=== PATIENT | female | born 1995 | race Caucasian/White ===

== ENCOUNTER 2016-07-01 19:28 | Observation (INO) | payer OTHER ==
[2016-07-01] MEDS ORDERED: ONDANSETRON 4 MG/2 ML VIAL ONE (20:07)
[2016-07-01] MEDS ORDERED: ONDANSETRON 4 MG/2 ML VIAL IVP ONE ×2 (20:19→22:09)
[2016-07-01] MEDS ORDERED: NS 1,000 ML IV ONE ×2 (20:20→22:09)
--- NOTE | 2016-07-01 20:32 | EDPHY ---
H & P Stated Complaint: epigastric pain HPI/ROS: HPI CHIEF COMPLAINT: Abdominal pain HISTORY OF PRESENT ILLNESS: This patient very pleasant 20-year-old female, denies any significant medical history, presents to the emergency room by private vehicle with nausea, 1 episode of nonbilious nonbloody vomiting, and abdominal pain. The patient tells me that around 5:00 p.m. this evening she felt very nauseous she went to work her nausea got more intense and she developed mid abdominal abdominal pain. She tells me the abdominal pain is located in her mid abdomen at times periumbilical however she does tell me she is on her. At this time. She does feel better since arriving in the emergency room and receiving IV Zofran 4 mg and IV fluids. She denies any urinary complaints denies back pain, chest pain, shortness of breath or fever. currently she tells me the pain is 4/10. Main complaint is mid abdominal pain. She describes a sharp stabbing pain. she tells me it comes and goes. Past Medical History:Denies any significant medical history Past Surgical History: Denies any significant surgical history Social History: denies daily use of drugs, does endorse occasional alcohol, occasional tobacco Family History: noncontributory ROS REVIEW OF SYSTEMS: A comprehensive 10 point review of systems is otherwise negative aside from elements mentioned in the history of present illness. Exam Constitutional triage nursing summary reviewed, vital signs reviewed, awake/ alert. (noted to be Tachy) Eyes normal conjunctivae and sclera, EOMI, PERRLA. HENT normal inspection, atraumatic, moist mucus membranes, no epistaxis, neck supple/ no meningismus, no raccoon eyes. Respiratory clear to auscultation bilaterally, normal breath sounds, no respiratory distress, no wheezing. Cardiovascular tachycardic, regular rhythm, no murmur, no edema, distal pulses normal. Gastrointestinal soft, mild tenderness palpation in the mid abdomen , no rebound, no guarding, normal bowel sounds, no distension, no pulsatile mass. Genitourinary no CVA tenderness. Musculoskeletal no midline vertebral tenderness, full range of motion, no calf swelling, no tenderness of extremities, no meningismus, good pulses, neurovascularly intact. Skin pink, warm, & dry, no rash, skin atraumatic. Neurologic awake, alert and oriented x 3, AAOx3, moves all 4 extremities equally, motor intact, sensory intact, CN II-XII intact, normal cerebellar, normal vision, normal speech. Psychiatric normal mood/affect. Heme/Lymph/Immune no lymphadenopathy. Differential diagnosis includes but is not limited to and in no particular order : acute appendicitis, gastritis, esophagitis, GERD, peptic ulcer disease, gallbladder disease Bowel obstruction, appendicitis, diverticulitis, colitis, enteritis, perforated viscus, gastritis, GERD, esophagitis, urinary tract infection, pyelonephritis, kidney stones Medical Decision Making: The patient had an IV established, patient placed on a monitor, she received IV fluids 1 L normal saline for hydration, 4 mg IV Zofran for nausea. We will obtain blood work including abdominal labs LFTs and lipase. Check a test, patient will need a CT scan abdomen pelvis with IV contrast rule out acute appendicitis. And will re-evaluate. Gordon VILLANUEVA as well on this case. Re-evaluation: EKG interpretation by me on record in [employer] system. Impression time of EKG 2050 this is sinus rhythm rate of 96 no acute ischemic changes. Normal EKG. No prolonged intervals, no ST elevation ST depression T-wave abnormalities. 0911: repeat vitals at this time afebrile, heart rate has improved from the 120 to 96 at rest. This time she has no complaints. CT scan of the abdomen pelvis with IV contrast for abdominal pain. The results of the study are this shows diffuse small bowel and large bowel fluid-filled contents consistent with most likely enteritis, also there may be duodenitis with gastric outlet obstruction The study was read by Dr. HUITRON. I viewed the images myself on the PACS system. 2199: I did update the patient and parents at bedside she still has ongoing abdominal pain and nausea bloating. I did review the CT scan with surgery they do recommend NG to low intermittent suction and admission. I did update the patient she will need to be admitted for observation NG suction due to possible gastric outlet obstruction from duodenitis/enteritis. It is noted the bowel wall do not appear inflamed or significantly dilated. I will consult the hospitalist service for admission. 2209: Spoke with Dr. Duffy the hospitalist service he agrees to admit this patient patient be admitted for enteritis, duodenitis, gastric outlet obstruction. I have ordered NG tube. Patient has been updated as well as family. She is comfortable this plan. She understands unfortunately the hospital's full this time will be observed in the emergency room overnight she is fine with this plan so his parents. Source: Patient - Personal History LMP (Females 10-55): Now Current Tetanus/Diphtheria Vaccine: Yes Current Tetanus Diphtheria and Acellular Pertussis (TDAP): Yes - Medical/Surgical History Hx Asthma: No Hx Chronic Respiratory Disease: No Hx Diabetes: No Hx Cardiac Disease: No Hx Renal Disease: No Hx Cirrhosis: No Hx Alcoholism: No Hx HIV/AIDS: No Hx Splenectomy or Spleen Trauma: No - Social History Smoking Status: Current some day smoker Constitutional: Initial Vital Signs Temperature (C) 36.6 C 07/01/16 19:54 Heart Rate 125 H 07/01/16 19:54 Respiratory Rate 18 07/01/16 19:54 Blood Pressure 155/93 H 07/01/16 19:54 O2 Sat (%) 96 07/01/16 19:54 O2 Delivery Mode Room Air Allergies/Adverse Reactions: No Known Allergies Allergy (Unverified 07/01/16 19:54) Home Medications: Medication Instructions Recorded Norgestimate-Ethinyl Estradiol 1 each PO DAILY 07/02/16 [Trinessa Lo Tablet] Ondansetron Odt [Zofran Odt 4 mg 4 mg PO Q8H PRN #20 tab 07/02/16 (*)] Medical Decision Making - Data Points Laboratory Results: Laboratory Results 07/01/16 20:10 07/01/16 20:10 Medications Given: Discontinued Medications Hydromorphone HCl (Dilaudid) 0.2 - 0.4 mg IVP Q4HRS PRN PRN Reason: Pain, Severe Unable to Take PO Stop: 07/11/16 23:51 Last Admin: 07/02/16 00:50 Dose: 0.2 mg Sodium Chloride (Ns) 1,000 mls @ 0 mls/hr IV ONCE ONE PRN Reason: Wide Open Stop: 07/01/16 20:21 Last Admin: 07/01/16 20:20 Dose: 1,000 mls Sodium Chloride (Ns) 1,000 mls @ 0 mls/hr IV ONCE ONE PRN Reason: Wide Open Stop: 07/01/16 22:10 Last Admin: 07/01/16 23:03 Dose: 1,000 mls Sodium Chloride (Ns) 1,000 mls @ 100 mls/hr IV CONT ANA ROSA Stop: 12/28/16 23:44 Last Admin: 07/02/16 01:00 Dose: 1,000 mls Morphine Sulfate (Morphine) 2 mg IVP EDNOW ONE Stop: 07/01/16 23:05 Last Admin: 07/01/16 23:12 Dose: 2 mg Ondansetron HCl (Zofran) 4 mg IVP EDNOW ONE Stop: 07/01/16 20:20 Last Admin: 07/01/16 20:20 Dose: 4 mg Ondansetron HCl (Zofran) 4 mg IVP EDNOW ONE Stop: 07/01/16 22:10 Last Admin: 07/01/16 23:02 Dose: 4 mg Promethazine HCl (Phenergan) 12.5 mg IVP Q6HRS PRN PRN Reason: Nausea/Vomiting, Can't Take PO Stop: 12/28/16 23:51 Last Admin: 07/02/16 00:50 Dose: 6.25 mg Departure - Departure Disposition: [facility] Acute Clinical Impression: Gastric outlet obstruction Abdominal pain Qualifiers: Abdominal location: generalized Qualified Code(s): R10.84 - Generalized abdominal pain Condition: Good
[2016-07-01 20:47] LABS: % IMMATURE GRANULYOCYTES 0.6 % (0.0-1.1); ABSOLUTE IMMATURE GRANULOCYTES 0.12 10^3/uL (0.00-0.10); ADD DIFF? NO; ADD MORPH? NO; ADD SCAN? NO; ATYPICAL LYMPHOCYTE FLAG 0 (0-99); FRAGMENT RBC FLAG 0 (0-99); HEMATOCRIT 51.7 % (38.0-47.0); HEMOGLOBIN 17.7 g/dL (12.6-16.3); LEFT SHIFT FLG 0 (0-99); LIPEMIA HEMOLYSIS FLAG 90 (0-99); MEAN CELL HEMOGLOBIN 30.1 pg (27.9-34.1); MEAN CELL HEMOGLOBIN CONCENTR. 34.2 g/dL (32.4-36.7); MEAN CELL VOLUME 87.9 fL (81.5-99.8); MEAN PLATELET VOLUME 9.2 fL (8.7-11.7); PLATELET CLUMPS FLAG 0 (0-99); PLATELET COUNT 495 10^3/uL (150-400); RED BLOOD CELL COUNT 5.88 10^6/uL (4.18-5.33); RED CELL DISTRIBUTION WIDTH 11.9 % (11.5-15.2)
--- NOTE | 2016-07-01 20:52 | CPEKG ---
Heart Rate: 96 RR Interval: 625 P-R Interval: 136 QRSD Interval: 102 QT Interval: 360 QTC Interval: 455 P [place]: 69 QRS [place]: 72 T Wave [place]: 17 EKG Severity - NORMAL ECG - EKG Impression: SINUS RHYTHM Electronically Signed By: Cole Graham 02-Jul-2016 22:48:59
[2016-07-01 20:53] LABS: ALBUMIN 4.9 g/dL (3.5-5.0)
[2016-07-01 20:54] LABS: COLOR YELLOW; LEUKOCYTE ESTERASE,URINE NEGATIVE (NEGATIVE); NITRITE,URINE NEGATIVE (NEGATIVE)
[2016-07-01 20:55] LABS: ALANINE AMINOTRANSFERASE 23 IU/L (9-52); ALKALINE PHOSPHATASE 69 IU/L (38-126); ANION GAP 15 mEq/L (8-16); ASPARTATE AMINOTRANSFERASE 31 IU/L (14-46); BILIRUBIN,TOTAL 0.5 mg/dL (0.1-1.4); BILIRUBIN-CONJUGATED 0.5 mg/dL (0.0-0.5); CALCIUM 10.7 mg/dL (8.5-10.4); CARBON DIOXIDE 24 mEq/l (22-31); CHLORIDE 102 mEq/L (97-110); CREATININE 0.7 mg/dL (0.6-1.0); GLOMERULAR FILTRATION RATE > 60; GLUCOSE 90 mg/dL (70-100); POTASSIUM 4.1 mEq/L (3.5-5.2); SODIUM 141 mEq/L (134-144); TOTAL PROTEIN 8.3 g/dL (6.3-8.2)
[2016-07-01] MEDS ORDERED: IOPAMIDOL (ISOVUE-300) 100 ML BTL IV ONE (21:10)
[2016-07-01 21:12] LABS: MUCUS 4+ /lpf (NONE-1+)
--- NOTE | 2016-07-01 22:08 | CT ---
CT Scan of the Abdomen and Pelvis (With Contrast) Clinical Indications: Just had a [employer] drink, now with extensive epigastric pain. Technique: Dilute contrast was given orally prior to the scan. During the machine power injection o f 80 mL Isovue-300 intravenously, multidetector helical CT imaging was performed from the diaphragm t o the pubic symphysis. Coronal and parasagittal reformatted images are reviewed on the workstation. Dose reduction techniques were utilized. Findings: The stomach is very distended. While the 3rd and 4th portion of the duodenum demonstrate fluid content, the 1st and 2nd portions of the duodenum are relatively decompressed, with what looks to be circumferential wall thickening. For example, at the 1st portion of the duodenum, the medial a nd the lateral mares measure up to 8 mm each. Also, aside from the jejunum, the entirety of the ilea l loops and all of the colonic loops, all the way down to the rectum, are fluid filled. This is not associated with wall thickening, inflammation, distention, or perforation. Vessels enhance normally. The liver, pancreas, spleen, adrenal glands, and kidneys also enhance norm ally. No hydronephrosis. The lung bases are clear. The soft tissues and bones are normal for the patient's age. Impression: 1. Query enteritis of the small bowel. 2. Could the patient have enteritis that is causing some degree of duodenitis, which in turn is caus ing epigastric outlet obstruction? Findings are discussed with Dr. Cole Lawson.
[2016-07-01] MEDS ORDERED: LIDOCAINE 2% JELLY 20 ML (UROJECT) ONE (22:24)
[2016-07-01] MEDS ORDERED: NS 1,000 ML IV SCH (23:45)
[2016-07-01] MEDS ORDERED: ONDANSETRON DISINTEGRATING 4 MG TAB PO PRN (23:52)
[2016-07-01] MEDS ORDERED: PROMETHAZINE HCL 25 MG/ML INJ IVP PRN (23:52)
[2016-07-01] MEDS ORDERED: ACETAMINOPHEN 325 MG TAB PO PRN (23:52)
[2016-07-01] MEDS ORDERED: HYDROmorphONE/DILAUDID 1 MG/ML SYR IVP PRN (23:52)
[2016-07-01] MEDS ORDERED: ONDANSETRON 4 MG/2 ML VIAL IVP PRN (23:52)
--- NOTE | 2016-07-02 00:57 | GHP ---
[f rep st] HISTORY AND PHYSICAL DATE OF ADMISSION: 07/01/2016 The patient is a 20-year-old female with no past medical history, who presents with abrupt onset epig astric/left upper quadrant pain. It was associated with some nausea and vomiting. It happened when she was at [employer]. She threw up her [employer] drink. She takes occasional ibuprofen but is not a typical ibuprofen user. She is a light smoker. Does not drink a lot of alcohol. No significant fa kalyan history. She has had no subjective fevers and chills. No nausea or vomiting. Her bowel habits she describes as normal, having a bowel movement between every other day and a couple of times a day. She has no t enesmus or vomiting or chronic abdominal pain to suggest a history of inflammatory bowel disease and this history does not run in her family. She has had no drenching night sweats or unexplained weight loss recently. REVIEW OF SYSTEMS: Complete 10-point review of systems conducted and negative except as noted in the HPI. PAST MEDICAL HISTORY: None. PAST SURGICAL HISTORY: She has never had abdominal surgery. SOCIAL HISTORY: She is a student at from [employer]. Her mother is at the bedside. Occasional tobacco, occasional alcohol, no drugs. FAMILY HISTORY: Reviewed and unremarkable. ALLERGIES: No known drug allergies. HOME MEDICATIONS: Oral contraceptives. PHYSICAL EXAMINATION: VITAL SIGNS: Presenting vitals: Temp 36.6, blood pressure 155/93, pulse 125, breathing 18 times a minute, 96% on room air. GENERAL: No acute distress. HEENT: Sclerae anicter ic. Oropharynx clear. Mucous membranes moist. NECK: Supple without lymphadenopathy or JVD. LUNGS : Clear to auscultation bilaterally. HEART: S1, S2. ABDOMEN: Soft, nontender, nondistended. LOW ER EXTREMITIES: Without edema. Calves are nontender. SKIN: Without rash. NEUROLOGIC: Grossly no nfocal. LABORATORY DATA: White count 19.1 with a left shift. Hematocrit 51.7. Platelets are 495,000, sodiu m 141, potassium 4.1, chloride 102, bicarb 24, BUN 13, creatinine 0.7. LFTs normal. Lipase normal. Beta hCG is negative. UA is unremarkable. Abdominal CT shows enteritis of the small bowel with a distended stomach and 3rd and 4th portion of t he duodenum with food content. First and 2nd portions are relatively decompressed. There is no wall thickening of the jejunum, ileum, or colon. There does not appear to be adenopathy. The mares 8 mm thick of the proximal duodenum. EKG, interpreted by me, shows sinus at 96 with normal axis and inte rvals and no ST or T-wave changes. I have discussed the case with Dr. Cole Graham. ASSESSMENT/PLAN: 1. A 20-year-old female who presents with sudden-onset epigastric pain and vomiting and gastric outl et obstruction. I suspect this is secondary to a viral infection with obliteration of the duodenal l umen although this is somewhat of an unusual and dramatic presentation. She has an NG tube and we wi ll provide her with IV antiemetics as well as IV pain medicines. We will allow her to have a clear l iquid diet. Differential includes extrinsic component which is not demonstrated on the CT as well as inflammatory bowel disease. I think that for the time being we are going to hold off on GI consult and endoscopy and follow her clinical progress. Certainly, if there is no improvement over 24-36 karmen rs, I think it would be reasonable to perform upper endoscopy. 2. Polycythemia. I think the patient is clinically dry. I will repeat a CBC in the morning. 3. Leukocytosis, likely secondary to viral infection. 4. Tobacco use. Counseled on cessation. 5. Prophylaxis, low use. 6. Disposition: Observation status. /[id number]/MODL
[2016-07-02 06:25] LABS: ANION GAP 12 mEq/L (8-16); CALCIUM 8.1 mg/dL (8.5-10.4); CARBON DIOXIDE 21 mEq/l (22-31); CHLORIDE 109 mEq/L (97-110); CREATININE 0.7 mg/dL (0.6-1.0); GLOMERULAR FILTRATION RATE > 60; GLUCOSE 110 mg/dL (70-100); POTASSIUM 4.3 mEq/L (3.5-5.2); SODIUM 142 mEq/L (134-144)
[2016-07-02 06:57] LABS: % IMMATURE GRANULYOCYTES 0.2 % (0.0-1.1); ABSOLUTE IMMATURE GRANULOCYTES 0.03 10^3/uL (0.00-0.10); ADD DIFF? NO; ADD MORPH? NO; ADD SCAN? NO; ATYPICAL LYMPHOCYTE FLAG 0 (0-99); FRAGMENT RBC FLAG 10 (0-99); HEMATOCRIT 42.3 % (38.0-47.0); HEMOGLOBIN 14.4 g/dL (12.6-16.3); LEFT SHIFT FLG 10 (0-99); LIPEMIA HEMOLYSIS FLAG 90 (0-99); MEAN CELL HEMOGLOBIN 30.8 pg (27.9-34.1); MEAN CELL VOLUME 90.6 fL (81.5-99.8); MEAN PLATELET VOLUME 9.3 fL (8.7-11.7); PLATELET CLUMPS FLAG 0 (0-99); PLATELET COUNT 312 10^3/uL (150-400); RED BLOOD CELL COUNT 4.67 10^6/uL (4.18-5.33); RED CELL DISTRIBUTION WIDTH 11.9 % (11.5-15.2)
[2016-07-02 07:54] VITALS: TEMP 98.2
--- NOTE | 2016-07-02 08:39 | HOSPPROG ---
Hospitalist Progress Note Assessment/Plan: 20 yo F w GOO, n, vom GOO: working dx is gastroenteritis w obliteration of lumen 1. clamp NGT 2. film at 11 (abd) 3. rec outpt egd see dc summary Subjective: drinking clear liquids but NGT to suction. symptomatically improved Objective: Vital Signs Temp Pulse Resp BP Pulse Ox 36.8 C 105 H 14 108/60 95 07/02/16 07:53 07/02/16 07:53 07/02/16 07:53 07/02/16 07:53 07/02/16 07:53 Laboratory Results 07/02/16 05:15 07/02/16 05:15 07/01/16 07/02/16 07/03/16 05:59 05:59 05:59 Intake Total 2000 Output Total 1300 Balance 700 - Physical Exam Constitutional: no apparent distress, appears nourished Eyes: PERRL, anicteric sclera Ears, Nose, Mouth, Throat: moist mucous membranes, hearing normal Cardiovascular: regular rate and rhythym, no murmur, rub, or gallop Respiratory: no respiratory distress, no rales or rhonchi Gastrointestinal: normoactive bowel sounds, soft, non-tender abdomen, No tenderness, No rebound, No distension Genitourinary: cain in urethra Skin: warm, normal color Musculoskeletal: full muscle strength, no muscle tenderness Neurologic: AAOx3 Psychiatric: interacting appropriately Lymph, Heme, Immunologic: no cervical LAD ICD10 Worksheet Patient Problems: Problems Problem Status Onset Abdominal pain Acute Gastric outlet obstruction Acute
--- NOTE | 2016-07-02 09:43 | GDS ---
[f rep st] DISCHARGE SUMMARY DISCHARGE DIAGNOSES: Gastric outlet obstruction from presumed viral gastroenteritis. CONSULTS DURING THIS ADMISSION: None. HOSPITAL COURSE: Please see admission history and physical by Dr. Pérez Duffy. The patient pres ented with somewhat abrupt onset abdominal pain with nausea and vomiting. Abdominal CT showed the 1 st portion of the duodenum wall thickening as well as narrowing of the lumen with a dilated stomach and decompressed distal GI tract. There was no extrinsic compression or adenopathy. This is most c onsistent with luminal obliteration secondary to viral gastroenteritis. The patient received IV flu ids. She had an NG-tube placed, which was to suction. She was drinking clear liquids with suction on so the canister is quite full of clear liquids. Today, the NG tube will be clamped. Abdominal film will be taken at 11. If there is decompression of her stomach and tolerance of clear fluids, she will go home today. I have recommended outpatient EGD. Discussed this with the patient and her mother. /[id number]/MODL
--- NOTE | 2016-07-02 11:21 | DX ---
Supine and upright abdominal radiographs. History: Follow-up gastric outlet obstruction. Comparison examination: CT abdomen one day earlier. Findings: Bowel gas pattern appears benign, with air present throughout the small bowel and colon. A n NG tube extends to the decompressed stomach. No free air or calculus. Impression: 1. Benign bowel gas pattern.
[2016-07-02 12:55] VITALS: BP 108/70
[2016-07-02 16:28] VITALS: PULSE 98; RESP 17; O2SAT 94
== END 2016-07-02 18:30 | disposition home or self-care (01) ==
LOC: F1N 23:55
PROVIDERS: ADMIT Internal Medicine; ATTEND Internal Medicine
PROC: 0D9670Z Drainage of Stomach with Drainage Device, Via Natural or Artificial Opening (ICD-10-PCS; principal; 2016-07-01)
DX: K31.1 Adult hypertrophic pyloric stenosis (principal); R10.84 Generalized abdominal pain; D75.1 Secondary polycythemia; D72.829 Elevated white blood cell count, unspecified; F17.200 Nicotine dependence, unspecified, uncomplicated
CPT/HCPCS: 43753; 74020; G0378; 82947-QW; 96374; J1170; J2405; J2550; Q9967